=== PATIENT | male | born 1955 | race Two or more races ===

== ENCOUNTER 2023-01-08 06:55 | Inpatient (IN) | payer BC ==
[2023-01-05 14:49] LABS: Basophils # (auto) 0 10 ^3/uL (0-0.2); Basophils % (auto) 0.5 % (0.0-2.0); Eosinophils # (auto) 0.2 10 ^3/uL (0-0.8); Eosinophils % (auto) 2.8 % (0.0-7.0); Hematocrit 40.7 % (41.0-53.0); Hemoglobin 13.6 g/dL (13.5-17.5); Lymphocytes # (auto) 0.7 10 ^3/uL (0.4-5.4); Lymphocytes % (auto) 12.7 % (10.0-50.0); Mean Corpuscular Hemoglobin 31.7 pg (28.0-32.0); Mean Corpuscular Hgb Conc. 33.4 g/dL (32.0-36.0); Mean Corpuscular Volume 94.9 fL (80.0-100.0); Monocytes # (auto) 0.5 10 ^3/uL (0-1.3); Monocytes % (auto) 8.5 % (0.0-12.0); Neutrophils # (auto) 4.2 10 ^3/uL (1.6-8.6); Neutrophils % (auto) 75.5 % (37.0-80.0); Nucleated Red Blood Cells % 0.1 %; Red Blood Cells 4.28 10^6/uL (4.5-5.90); Red Cell Distribution Width 12.6 % (11.8-14.3); White Blood Cell 5.6 10^3/uL (4.4-10.8)
[2023-01-05 14:55] LABS: Urine Bacteria FEW /hpf (None Seen); Urine Blood Negative /uL (Negative); Urine Mucus FEW (None Seen); Urine WBC <1 /hpf (0 - 3)
[2023-01-05 15:03] LABS: INR 0.94 (0.9-1.15); Partial Thromboplastin Time 26.2 sec (24.6-33.4)
[2023-01-05 15:41] LABS: Potassium 3.7 mmol/L (3.5-5.1)
[2023-01-05 15:47] LABS: BUN/Creatinine Ratio 20.8 (10.0-20.0); Bilirubin, Total 0.5 mg/dL (0.2-1.0); Calcium 9.1 mg/dL (8.5-10.1); Total Protein 7.6 g/dL (6.4-8.2)
[~2023-01-08] VITALS: Ht 177.8 cm; Wt 110.5 kg
[~2023-01-08 06:55] MED LIST: AMLO-496 PO; CHOL1TAB28 PO; DOXA1TAB41 PO; GLIP5TAB12 PO; METF-490 PO; METH2.5T PO; METO-159 PO; PIRO20CA PO; TOFA10TA PO
[2023-01-08] MEDS ORDERED: ceFAZolin 1GM/50ML 100 ML IV ONE (07:09)
[2023-01-08] MEDS: LIDOCAINE 4MG/ML IV SOLN 500 ML IV SCH ×2 (07:45→17:56)
[2023-01-08] MEDS ORDERED: ACETAMINOPHEN 500 MG TAB PO ONE (07:45)
[2023-01-08] MEDS ORDERED: GABAPENTIN 400 MG CAP PO ONE (07:45)
[2023-01-08] MEDS ORDERED: ROCURONIUM 10MG/ML 10ML VIAL IV ONE (07:52)
[2023-01-08] MEDS ORDERED: GLYCOPYRROLATE 0.2 MG/ML 1ML VIAL ONE ×3 (07:52→13:13)
[2023-01-08] MEDS ORDERED: fentaNYL CITRATE 100 MCG/2 ML VL ONE (07:52)
[2023-01-08] MEDS ORDERED: DexAMETHasone SOD PHOS 10MG/1ML VIAL INJ ONE (07:54)
[2023-01-08] MEDS ORDERED: ONDANSETRON HCL 4 MG/2 ML VIAL ONE ×2 (07:54→12:13)
[2023-01-08] MEDS ORDERED: PROPOFOL 10 MG/ML 20 ML IV ONE ×4 (07:54→12:15)
[2023-01-08] MEDS ORDERED: LIDOCAINE 2% (LOCAL ANESTH.) PF 5ml SDV ONE (07:54)
[2023-01-08] MEDS ORDERED: ACETAMINOPHEN IV 100 ML IV ONE (07:56)
[2023-01-08] MEDS ORDERED: SODIUM CHLORIDE LOCK 10 ML ONE ×6 (07:57→12:58)
[2023-01-08] MEDS ORDERED: MAGNESIUM SULFATE 1GM/100ML 100 ML IV SCH (08:00)
[2023-01-08] MEDS ORDERED: TRANEXAMIC ACID ONE (08:27)
[2023-01-08] MEDS ORDERED: ePHEDrine SULFATE 50 MG/ML AMP ONE ×2 (08:53→13:08)
[2023-01-08] MEDS ORDERED: SUGAMMADEX 200mg/2ml Vial (100MG/ML) IV ONE (10:27)
[2023-01-08] MEDS ORDERED: PHENYLEPHRINE HCL 10 MG/ML VL ONE ×2 (10:47→12:58)
[2023-01-08] MEDS ORDERED: ceFAZolin 1GM VL ONE (12:12)
[2023-01-08] MEDS ORDERED: ePHEDrine SULFATE 50 MG/ML AMP IV PRN (14:30)
[2023-01-08] MEDS ORDERED: HYDROmorphone HCL 2 MG/ML VL/or syr IV PRN (14:30)
[2023-01-08] MEDS ORDERED: hydrALAZINE HCL 20 MG/ML VL IV PRN (14:30)
[2023-01-08] MEDS ORDERED: LABETALOL HCL 5 MG/ML 4ML SYRINGE IV PRN (14:30)
[2023-01-08] MEDS ORDERED: ONDANSETRON HCL 4 MG/2 ML VIAL IV PRN ×2 (14:30→15:00)
[2023-01-08] MEDS ORDERED: fentaNYL CITRATE 100 MCG/2 ML VL IV PRN (14:30)
[2023-01-08] MEDS ORDERED: FLUMAZENIL 0.1 MG/ML INJ 10ML MDV IV PRN (14:30)
[2023-01-08] MEDS ORDERED: NALOXONE HCL 0.4 MG/ML VIAL IV PRN (14:30)
[2023-01-08] MEDS ORDERED: ACETAMINOPHEN 325 MG TAB PO PRN (15:00)
[2023-01-08] MEDS ORDERED: ceFAZolin 1GM/50ML 50 ML IV SCH (15:00)
[2023-01-08] MEDS ORDERED: MORPHINE SULFATE INJ 2 MG/ml SYRG IV PRN ×3 (15:00→15:30)
[2023-01-08] MEDS ORDERED: NITROGLYCERIN 0.4 MG SL TAB SL PRN (15:00)
[2023-01-08] MEDS ORDERED: HYDROcodone-ACET 10/325MG TAB PO PRN (15:00)
[2023-01-08] MEDS: oxyCODONE HCL 5MG TAB PO PRN (15:13)
[2023-01-08] MEDS ORDERED: CYCLOBENZAPRINE HCL 10 MG TAB PO ONE (16:00)
[2023-01-08 16:40] VITALS: BP 99/58
[2023-01-08] MEDS: D5W/SOD CHLO 0.9% 1,000 ML IV SCH (17:35)
[2023-01-08 20:00] VITALS: BP 96/64
[2023-01-08] MEDS: DOCUSATE SOD 100 MG CAP PO SCH (21:03)
[2023-01-08] MEDS: CYCLOBENZAPRINE HCL 10 MG TAB PO SCH (21:04)
[2023-01-08 22:00] VITALS: BP 96/64
[2023-01-09] MEDS: D5W/SOD CHLO 0.9% 1,000 ML IV SCH ×2 (03:09→13:13)
[2023-01-09 05:00] VITALS: BP 113/62
[2023-01-09] MEDS: CYCLOBENZAPRINE HCL 10 MG TAB PO SCH ×3 (05:41→21:44)
[2023-01-09 09:05] VITALS: BP 113/63
[2023-01-09] MEDS: DOCUSATE SOD 100 MG CAP PO SCH ×2 (09:51→21:44)
[2023-01-09 13:00] VITALS: BP 119/66
[2023-01-09 16:49] VITALS: BP 145/73
[2023-01-09] MEDS ORDERED: DEXTROSE (50%) 50ML SYRG IV PRN (17:15)
[2023-01-09] MEDS: DOXAZOSIN MESYL 2 MG TAB PO SCH (21:45)
[2023-01-09] MEDS: ACCU-CHEK COMFORT CURVE STRIP VI SCH (21:46)
[2023-01-09] MEDS: InsuLIN REG 1unit/0.01ml Soln (100units/ml) SC SCH (21:50)
[2023-01-09 22:00] VITALS: BP 127/81
[2023-01-10 05:00] VITALS: BP 122/71
[2023-01-10] MEDS: CYCLOBENZAPRINE HCL 10 MG TAB PO SCH ×3 (06:01→21:52)
[2023-01-10] MEDS: ACCU-CHEK COMFORT CURVE STRIP VI SCH ×4 (06:02→21:52)
[2023-01-10] MEDS: InsuLIN REG 1unit/0.01ml Soln (100units/ml) SC SCH ×4 (06:08→22:00)
[2023-01-10 06:48] LABS: Basophils # (auto) 0 10 ^3/uL (0-0.2); Basophils % (auto) 0.3 % (0.0-2.0); Eosinophils # (auto) 0 10 ^3/uL (0-0.8); Eosinophils % (auto) 0.5 % (0.0-7.0); Hematocrit 27.6 % (41.0-53.0); Hemoglobin 9.5 g/dL (13.5-17.5); Lymphocytes # (auto) 0.4 10 ^3/uL (0.4-5.4); Lymphocytes % (auto) 6.1 % (10.0-50.0); Mean Corpuscular Hemoglobin 33.3 pg (28.0-32.0); Mean Corpuscular Hgb Conc. 34.6 g/dL (32.0-36.0); Mean Corpuscular Volume 96.2 fL (80.0-100.0); Monocytes # (auto) 0.7 10 ^3/uL (0-1.3); Monocytes % (auto) 9.8 % (0.0-12.0); Neutrophils # (auto) 6.1 10 ^3/uL (1.6-8.6); Neutrophils % (auto) 83.3 % (37.0-80.0); Red Blood Cells 2.87 10^6/uL (4.5-5.90); Red Cell Distribution Width 12.8 % (11.8-14.3); White Blood Cell 7.4 10^3/uL (4.4-10.8)
[2023-01-10 07:40] LABS: BUN/Creatinine Ratio 18.2 (10.0-20.0); Calcium 8.2 mg/dL (8.5-10.1); Potassium 3.7 mmol/L (3.5-5.1)
[2023-01-10 08:37] VITALS: BP 120/73
[2023-01-10] MEDS: DOCUSATE SOD 100 MG CAP PO SCH ×2 (08:52→21:52)
[2023-01-10] MEDS: amLODIPine BESYLATE 5 MG TAB PO SCH (08:52)
[2023-01-10] MEDS: oxyCODONE HCL 5MG TAB PO PRN ×2 (08:52→19:56)
[2023-01-10 13:00] VITALS: BP 100/65
[2023-01-10 17:00] VITALS: BP 111/69
[2023-01-10] MEDS ORDERED: MAGNESIUM CITRATE SOLUTION 300 ML BTL PO ONE (17:00)
[2023-01-10] MEDS: POLYETHYLENE GLYCOL 17 GM PWDR PO PRN (17:40)
[2023-01-10] MEDS: DOXAZOSIN MESYL 2 MG TAB PO SCH (21:55)
[2023-01-10 22:00] VITALS: BP 113/58
[2023-01-11 05:00] VITALS: BP 105/60
[2023-01-11] MEDS: CYCLOBENZAPRINE HCL 10 MG TAB PO SCH ×3 (06:34→23:10)
[2023-01-11] MEDS: ACCU-CHEK COMFORT CURVE STRIP VI SCH ×4 (06:35→22:00)
[2023-01-11] MEDS: InsuLIN REG 1unit/0.01ml Soln (100units/ml) SC SCH ×4 (06:39→23:16)
[2023-01-11] MEDS: amLODIPine BESYLATE 5 MG TAB PO SCH (08:35)
[2023-01-11] MEDS: DOCUSATE SOD 100 MG CAP PO SCH ×2 (08:35→23:08)
[2023-01-11] MEDS: oxyCODONE HCL 5MG TAB PO PRN (08:35)
[2023-01-11 09:00] VITALS: BP 113/71
[2023-01-11] MEDS: POLYETHYLENE GLYCOL 17 GM PWDR PO PRN (11:45)
[2023-01-11 13:00] VITALS: BP 107/65
[2023-01-11] MEDS: LACTULOSE 20Gm/30ML SOLN PO SCH ×3 (13:58→23:08)
[2023-01-11 17:00] VITALS: BP 125/73
[2023-01-11 22:00] VITALS: BP 105/61
[2023-01-11] MEDS: DOXAZOSIN MESYL 2 MG TAB PO SCH (23:09)
[2023-01-12] MEDS: LACTULOSE 20Gm/30ML SOLN PO SCH ×4 (02:48→14:00)
[2023-01-12 05:00] VITALS: BP 118/79
[2023-01-12] MEDS: CYCLOBENZAPRINE HCL 10 MG TAB PO SCH ×2 (05:59→14:44)
[2023-01-12] MEDS: InsuLIN REG 1unit/0.01ml Soln (100units/ml) SC SCH ×2 (06:07→12:00)
[2023-01-12] MEDS: ACCU-CHEK COMFORT CURVE STRIP VI SCH ×2 (06:14→12:00)
[2023-01-12 08:38] VITALS: BP 117/76
[2023-01-12] MEDS: DOCUSATE SOD 100 MG CAP PO SCH (09:41)
[2023-01-12] MEDS: amLODIPine BESYLATE 5 MG TAB PO SCH (09:42)
[2023-01-12 12:57] VITALS: BP 117/76
== END 2023-01-12 14:48 | disposition home or self-care (01) | DRG 455 ==
LOC: SUR 06:55 → TELE 14:52 → TELE-EAST 16:29 → EAST 01-09 17:35
PROVIDERS: ADMIT Orthopaedic Surgery; ATTEND Internal Medicine
PROC: 0SG1071 Fusion of 2 or more Lumbar Vertebral Joints with Autologous Tissue Substitute, Posterior Approach, Posterior Column, Open Approach (ICD-10-PCS; 2023-01-08)
PROC: 01NB0ZZ Release Lumbar Nerve, Open Approach (ICD-10-PCS; 2023-01-08)
PROC: 4A11X4G Monitoring of Peripheral Nervous Electrical Activity, Intraoperative, External Approach (ICD-10-PCS; 2023-01-08)
PROC: 0SG10AJ Fusion of 2 or more Lumbar Vertebral Joints with Interbody Fusion Device, Posterior Approach, Anterior Column, Open Approach (ICD-10-PCS; principal; 2023-01-08 08:34)
DX: M48.062 Spinal stenosis, lumbar region with neurogenic claudication (principal); M51.36 Other intervertebral disc degeneration, lumbar region; N40.0 Benign prostatic hyperplasia without lower urinary tract symptoms; M06.9 Rheumatoid arthritis, unspecified; M43.16 Spondylolisthesis, lumbar region; I10 Essential (primary) hypertension; E66.9 Obesity, unspecified; E11.42 Type 2 diabetes mellitus with diabetic polyneuropathy; Z68.35 Body mass index [BMI] 35.0-35.9, adult
CPT/HCPCS: 36415; 72100; 76000; 80048; 80053; 81001; 82962; 83036; 85025; 85610; 85730; 86850; 86900; 86901; 97110; 97116; 97163; 97530; G0378; J0131; J0690; J1100; J1815; J2001; J2405; J2704; J7042

== ENCOUNTER 2023-01-26 17:50 | Emergency (ER) | payer BC ==
[~2023-01-26] VITALS: Ht 177.8 cm; Wt 92.2 kg
[~2023-01-26 17:50] MED LIST changes: -AMLO-496 PO; +AMLO1TAB23 PO
[2023-01-26] MEDS ORDERED: PRED20TA2 PO (21:23)
[2023-01-26] MEDS ORDERED: ACETAMINOPHEN/CODEINE#3 (300/30mg) TAB PO ONE (21:30)
[2023-01-26] MEDS ORDERED: methylPREDNISolone SOD SUCC 40 MG/ML VL IM ONE (21:45)
[2023-01-26 22:39] VITALS: BP 129/76
== END 2023-01-26 22:40 | disposition home or self-care (01) ==
LOC: ER 17:50
DX: M06.80 Other specified rheumatoid arthritis, unspecified site (principal); E11.9 Type 2 diabetes mellitus without complications; I10 Essential (primary) hypertension; Z79.899 Other long term (current) drug therapy; Z98.890 Other specified postprocedural states
CPT/HCPCS: 73130; 96372; 99283; J2920